=== PATIENT | female | born 1940 | race Caucasian/White ===

== ENCOUNTER 2021-03-24 14:23 | Emergency (ER) | payer MEDICARE ==
[~2021-03-24] VITALS: Ht 157 cm; Wt 83.0 kg
[2021-03-24] MEDS ORDERED: TETANUS,DIPTH,PERTUSS P/F (BOOSTRIX) 0.5 ML VIAL IM ONE (15:00)
--- NOTE | 2021-03-24 15:07 | ED Fall/Injury ---
General Chief Complaint: Head/Cervical Problems Stated Complaint: HEAD INJURY Nursing Triage Note: PT WAS SENT OVER FROM [facility] DUE TO HEAD INJURY. PATIENT STATES THAT AROUND 1200 SHE FELL GOING DOWN HER GRANDAUGHTERS STEPS. PATIENT FELL DOWN FOUR STEPS AND LANDED ON HER RT SIDE, HITTING HER HEAD ON CONCRETE. PATIENT DENIES LOC AND IS ALERT AND ORIENTED X'S 4. Source: patient Exam Limitations: no limitations History of Present Illness Date Seen by Provider: Mar 24, 2021 Time Seen by Provider: 14:40 Initial Comments Here after being seen at [facility] with report of fall and hitting her head on the concrete. Patient is 80 and does take aspirin but no other blood thinners. Does have abrasion to the right knee and right arm. She is walking and moving extremities okay. Denies loss of consciousness or significant neck pain. Denies breathing problems or abdominal pain. She reports falling down a few concrete steps. She caught herself with the railing but still fell. Occurred: this morning (3 hours ago) Severity: moderate Injuries/Pain Location: head, upper extremity, lower extremity Context: tripped Loss of Consciousness: no loss of consciousness Modifying Factors: Improves With Rest Associated Symptoms (Fall): No Chest Pain, No Confusion; Headache; No Lightheadedness, No Muscle Spasms, No Nausea/Vomiting, No Neck Pain, No Shortness of Air, No Trouble Walking, No Vision Changes Allergies and Home Medications Allergies Coded Allergies: Sulfa (Sulfonamide Antibiotics) (Verified Allergy, Unknown, 03/24/21) Patient Home Medication List Home Medication List Reviewed: Yes Review of Systems Review of Systems Constitutional: see HPI; No chills, No fever Eyes: No Symptoms Reported Ears, Nose, Mouth, Throat: no symptoms reported Respiratory: No cough, No short of breath Cardiovascular: no symptoms reported Gastrointestinal: No nausea, No vomiting Genitourinary: no symptoms reported Musculoskeletal: no symptoms reported Skin: change in color, lesions Psychiatric/Neurological: Headache (Right-sided top of her head); Denies Weakness Past Ixocelr-Flgewd-Gbabse Hx Past Med/Social Hx: Reviewed Nursing Past Med/Soc Hx Patient Social History Alcohol Use: Denies Use Smoking Status: Never a Smoker Recent Infectious Disease Expo: No Past Medical History Surgeries: Yes Hysterectomy Respiratory: No Cardiac: No Neurological: No Genitourinary: No Gastrointestinal: No Musculoskeletal: No Endocrine: No HEENT: No Cancer: No Psychosocial: No Integumentary: No Blood Disorders: No Family Medical History Reviewed Nursing Family Hx No Pertinent Family Hx Physical Exam Vital Signs Vital Signs - First Documented 03/24/21 14:34 Temp 36.3 Pulse 94 Resp 16 B/P (MAP) 147/103 (118) O2 Delivery Room Air Capillary Refill : Less Than 3 Seconds Height, Weight, BMI Height: '" Weight: lbs. oz. kg; 33.00 BMI Method: General Appearance: WD/WN, no apparent distress HEENT: PERRL/EOMI, pharynx normal, other (5 x 5 cm ecchymotic area right side top of head) Neck: full range of motion, supple Cardiovascular: regular rate, rhythm, no murmur Respiratory: lungs clear, normal breath sounds Gastrointestinal: non tender, soft Back: normal inspection, no CVA tenderness, no vertebral tenderness Extremities: normal range of motion, other (Abrasions right anterior knee with mild ecchymosis. Full range of motion without difficulty.) Neurologic/Psychiatric: alert, oriented x 3 Skin: warm/dry, ecchymosis (Right knee), other (Right knee) Milton Coma Score Best Eye Response: (4) Open Spontaneously Best Verbal Response: (5) Oriented Best Motor Response: (6) Obeys Commands Progress/Results/Core Measures Results/Orders My Orders Orders - CHACORTA OH MD Ct Head/Cervical Spine Wo (03/24/21 14:46) Dipht,Pertuss(Acell),Tet Adult (Boostrix (03/24/21 15:00) General/Regular (03/24/21 Lunch) Ondansetron Oral Dissolve Tab (Zofran (03/24/21 16:11) Medications Given in ED Current Medications Medications Dose Ordered Sig/Roberto Route Start Time Stop Time Status Last Admin Dose Admin Diphtheria/ Tetanus/Acell Pertussis 0.5 ml ONCE ONCE IM 03/24/21 15:00 03/24/21 15:01 DC 03/24/21 14:57 0.5 ML Vital Signs/I&O 03/24/21 14:34 Temp 36.3 Pulse 94 Resp 16 B/P (MAP) 147/103 (118) O2 Delivery Room Air Blood Pressure Mean: 118 Progress Progress Note : Progress Note Seen and evaluated. CT head and neck ordered given age and type of fall. Tetanus updated. Monitor patient. 1549: CT head and neck do not show any acute findings. Patient requested snack because she felt a little lightheaded since she has not eaten this morning. That was offered and given. Discharged home with return precautions. Patient verbalized understanding instructions and agreement with plan. 1705: Patient did have episode of dizziness at time of discharge with some nausea. She was given Zofran 4 mg sublingual. She subsequently ate. She has been sitting up and is doing much better now would like to go home. Discharged home as previously discussed. Diagnostic Imaging Diagonstic Imaging: CT Plain Films/CT/US/NM/MRI: c-spine, head Comments [facility], [place] NAME: MARCOS GARCIA [facility] REC#: [id number] PT STATUS: REG ER : 1940 PHYSICIAN: CHACORTA OH MD ADMIT DATE: 03/24/21/ER Draft Date of Exam:03/24/21 CT HEAD/CERVICAL SPINE WO PROCEDURE: CT head and CT cervical spine without contrast. TECHNIQUE: Multiple contiguous axial images were obtained through the brain and cervical spine without the use of intravenous contrast. Sagittal and coronal reformations through the cervical spine were then performed. Auto Exposure Controls were utilized during the CT exam to meet ALARA standards for radiation dose reduction. INDICATION: Fall. Trauma. COMPARISON: None. FINDINGS: CT HEAD: The ventricles and cortical sulci are diffusely prominent, compatible with age-related volume loss. There are confluent areas of abnormal, low attenuation in the periventricular white matter. This is consistent with small vessel ischemic changes; age-indeterminate. There is no prior study available for comparison. There is no midline shift or mass-effect. No acute intra-axial hemorrhage is seen. There are no abnormal areas of increased or decreased density to suggest acute hemorrhage or edema. No extra-axial masses or collections are present. Moderate-sized scalp hematoma is noted posterolaterally on the right. The underlying bony calvarium is intact. The visualized paranasal sinuses are unremarkable. The mastoid air cells are clear. CT CERVICAL SPINE: Static alignment of the cervical spine is maintained. There is no significant christiano or retrolisthesis. There is no evidence of jumped facets. Vertebral body heights are maintained. There is no acute fracture. No bony fragments are seen within the spinal canal. Multilevel degenerative changes are noted and consist of intervertebral disc height loss with anterior and posterior endplate osteophyte formations as well as multilevel facet arthropathy. These changes appear greatest at the C5-C6 level. Pre and paravertebral soft tissue structures are unremarkable. The included portions of the lung apices show no additional acute abnormalities. IMPRESSION: 1. No acute intracranial abnormality. No CT evidence of mass, acute infarct, or intracranial hemorrhage. 2. Small vessel ischemic changes in the periventricular and subcortical white matter; likely chronic. 3. No acute fracture or dislocation in the cervical spine. 4. Multilevel degenerative changes, greatest at C5-C6. Dictated on workstation # [id number] Dict: 03/24/21 1532 Trans: 03/24/21 1538 [id number] Interpreted by: JOSE A BELL MD Electronically signed by: Departure Impression Primary Impression: Head injury Qualified Codes: S09.90XA - Unspecified injury of head, initial encounter Additional Impressions: Scalp contusion Qualified Codes: S00.03XA - Contusion of scalp, initial encounter Multiple abrasions Disposition: HOME, SELF-CARE Condition: Stable Departure-Patient Inst. Decision time for Depature: 17:05 (3154) Referrals: BELL HARGROVE MD Patient Instructions: Minor Head Injury (DC), Contusion (DC), Abrasions ED Add. Discharge Instructions: All discharge instructions reviewed with patient and/or family. Voiced understanding. You may use ice pack to contusions for 20 minutes/h as needed to reduce swelling and pain. You may take Tylenol/acetaminophen 1000 mg every 6-8 hours as needed for pain. You may use antibiotic ointment or cream lightly over wounds once or twice daily to reduce chance of infection. It is okay to shower and wash wounds. Return for worse pain, fever, vomiting, weakness, vision or balance problems, dizziness or other concerns as needed. CHACORTA OH MD Mar 24, 2021 15:07
--- NOTE | 2021-03-24 15:39 | Diagnostic Imaging Report ---
PROCEDURE: CT head and CT cervical spine without contrast. TECHNIQUE: Multiple contiguous axial images were obtained through the brain and cervical spine without the use of intravenous contrast. Sagittal and coronal reformations through the cervical spine were then performed. Auto Exposure Controls were utilized during the CT exam to meet ALARA standards for radiation dose reduction. INDICATION: Fall. Trauma. COMPARISON: None. FINDINGS: CT HEAD: The ventricles and cortical sulci are diffusely prominent, compatible with age-related volume loss. There are confluent areas of abnormal, low attenuation in the periventricular white matter. This is consistent with small vessel ischemic changes; age-indeterminate. There is no prior study available for comparison. There is no midline shift or mass-effect. No acute intra-axial hemorrhage is seen. There are no abnormal areas of increased or decreased density to suggest acute hemorrhage or edema. No extra-axial masses or collections are present. Moderate-sized scalp hematoma is noted posterolaterally on the right. The underlying bony calvarium is intact. The visualized paranasal sinuses are unremarkable. The mastoid air cells are clear. CT CERVICAL SPINE: Static alignment of the cervical spine is maintained. There is no significant christiano or retrolisthesis. There is no evidence of jumped facets. Vertebral body heights are maintained. There is no acute fracture. No bony fragments are seen within the spinal canal. Multilevel degenerative changes are noted and consist of intervertebral disc height loss with anterior and posterior endplate osteophyte formations as well as multilevel facet arthropathy. These changes appear greatest at the C5-C6 level. Pre and paravertebral soft tissue structures are unremarkable. The included portions of the lung apices show no additional acute abnormalities. IMPRESSION: 1. No acute intracranial abnormality. No CT evidence of mass, acute infarct, or intracranial hemorrhage. 2. Small vessel ischemic changes in the periventricular and subcortical white matter; likely chronic. 3. No acute fracture or dislocation in the cervical spine. 4. Multilevel degenerative changes, greatest at C5-C6. Dictated by: Dictated on workstation # [id number]
[2021-03-24] MEDS ORDERED: ONDANSETRON 4 MG (ZOFRAN) ORAL DISSOLVE TAB SL STA (16:11)
[2021-03-24 17:17] VITALS: BP 132/78
== END 2021-03-24 17:17 | disposition home or self-care (01) ==
LOC: ER 14:30
DX: S00.03XA Contusion of scalp, initial encounter (principal); S80.01XA Contusion of right knee, initial encounter; S09.90XA Unspecified injury of head, initial encounter; Z23 Encounter for immunization; W22.8XXA Striking against or struck by other objects, initial encounter
CPT/HCPCS: 70450; 72125; 90715

== ENCOUNTER 2022-01-02 13:50 | Emergency (ER) | payer MEDICARE ==
[~2022-01-02] VITALS: Ht 157 cm; Wt 81.0 kg
[2022-01-02 14:03] VITALS: BP 173/100
[2022-01-02] MEDS ORDERED: HYDROcodone/APAP 5 MG/325 MG (LORTAB) TAB PO ONE (14:45)
--- NOTE | 2022-01-02 14:49 | ED Back Pain ---
General Chief Complaint: Back Problems Stated Complaint: BACK PAIN - CONSTIPATION Nursing Triage Note: Pt here with back pain to the lower right side that radiates into her lower abdomen. Pt states she was seen at a walk in clinic a wk ago and given Prednisone and a muscle relaxer. Since then she has become constipated. Pt noted to be hypertensive; she states she hasn't taken her b/p medicine in a couple of days. Source of Information: Patient Exam Limitations: No Limitations History of Present Illness Date Seen by Provider: Jan 02, 2022 Time Seen by Provider: 14:34 Initial Comments Here with complaint of low back pain on the right side and constipation. She is on prednisone and a muscle relaxer from the clinic. Onset of pain and constipation after moving furniture about a week ago. Pain is to the right but tock and radiates to the right upper leg and noted in the right low back. Denies falls, injuries otherwise or other trauma. Denies numbness between her legs. Denies difficulty with walking or urinating. She does report constipation. States that [id number] topical medications as well as the prescribed medicines have not worked for her pain so far. She is heading back to [place] in a few days. She is hoping to get a little better by then. Timing/Duration: 1 Week, Constant Severity: Moderate Pain/Injury Location: Back Radiation: Buttocks Method of Injury: Other Modifying Factors: Worse With Movement; Improves With Rest Associated Symptoms: No muscle spasms, No fever, No weakness, No numbness in legs/feet, No tingling in legs/feet, No sensory/motor loss; lower back pain; No loss of bladder control, No loss of bowel control Allergies and Home Medications Allergies Coded Allergies: Sulfa (Sulfonamide Antibiotics) (Verified Allergy, Unknown, 03/24/21) Patient Home Medication List Home Medication List Reviewed: Yes Review of Systems Constitutional: see HPI; No chills, No fever Respiratory: no symptoms reported Cardiovascular: no symptoms reported Gastrointestinal: see HPI, constipation; No nausea, No vomiting Genitourinary: No frequency, No hesitancy, No pain Musculoskeletal: back pain, muscle pain Skin: no symptoms reported Psychiatric/Neurological: No Symptoms Reported Past Dwzpzvu-Wwxgon-Hschnr Hx Patient Social History Tobacco Use?: No Substance use?: No Alcohol Use?: No Past Medical History Surgeries: Yes Hysterectomy Respiratory: No Cardiac: No Neurological: No Genitourinary: No Gastrointestinal: No Musculoskeletal: No Endocrine: No HEENT: No Cancer: No Psychosocial: No Integumentary: No Blood Disorders: No Family Medical History Reviewed Nursing Family Hx No Pertinent Family Hx Physical Exam Vital Signs Vital Signs - First Documented 01/02/22 14:03 Temp 36.2 Pulse 100 Resp 18 B/P (MAP) 173/100 (124) Pulse Ox 96 Capillary Refill : Height, Weight, BMI Height: '" Weight: lbs. oz. kg; 32.00 BMI Method: General Appearance: No Apparent Distress, WD/WN Neck: Non Tender, Supple Cardiovascular: Regular Rate, Rhythm, No Murmur Respiratory: Lungs Clear, Normal Breath Sounds Gastrointestinal: Normal Bowel Sounds, Non Tender, Soft; No Distended Back: No CVA Tenderness, No Vertebral Tenderness, Other (Mild tenderness in the area of the right upper buttock at the SI joint) Extremity: Normal Range of Motion, Non Tender, No Calf Tenderness Neurologic/Psychiatric: Alert, Oriented x3 Skin: Normal Color, Warm/Dry Progress/Results/Core Measures Results/Orders My Orders Orders - CHACORTA OH MD Acute Abd Series (01/02/22 14:42) Hydrocodone/Apap 5/325 Tablet (Lortab 5 (01/02/22 14:45) Medications Given in ED Current Medications Medications Dose Ordered Sig/Roberto Route Start Time Stop Time Status Last Admin Dose Admin Acetaminophen/ Hydrocodone Bitart 1 ea ONCE ONCE PO 01/02/22 14:45 01/02/22 14:46 DC 01/02/22 14:50 1 EA Vital Signs/I&O 01/02/22 14:03 Temp 36.2 Pulse 100 Resp 18 B/P (MAP) 173/100 (124) Pulse Ox 96 Blood Pressure Mean: 124 Progress Progress Note : Progress Note Seen and evaluated. We will get acute abdominal series to evaluate abdomen and for constipation. Hydrocodone 5/325 1 tab p.o. given. Monitor patient. 1551: Overall doing okay. X-ray reviewed and reviewed with patient including the torturous aorta. She does take blood pressure medicines and I counseled her to make sure that she continues those as prescribed. She does have constipation on x-ray. We discussed outpatient therapy for that. Discharged home with return precautions. Patient and family verbalized understanding instructions and agreement with plan. Diagnostic Imaging Diagonstic Imaging: Xray Plain Films/CT/US/NM/MRI: chest, abdomen Comments [facility] [place], [place] NAME: MARCOS GARCIA [facility] REC#: [id number] PT STATUS: REG ER : 1940 PHYSICIAN: CHACORTA OH MD ADMIT DATE: 01/02/22/ER Draft Date of Exam:01/02/22 ACUTE ABD SERIES INDICATION: Back pain on the right and extending into the lower abdomen. FINDINGS: The lungs are clear. There is tortuous and/or ectatic thoracic aorta. No acute appearing abnormality. No effusion or pneumothorax. The colonic fecal load is perhaps mildly elevated but not clearly pathologic. No impaction or obstruction. No suspect calcifications. IMPRESSION: Borderline constipation. Tortuous and/or ectatic thoracic aorta. No acute appearing pulmonary pathology, obstruction or free air. Dictated on workstation # [id number] Dict: 01/02/22 1512 Trans: 01/02/22 1518 [id number] Interpreted by: MAILE WEBB Electronically signed by: Reviewed: Reviewed by Me Departure Impression Primary Impression: Lumbar radiculopathy Additional Impression: Constipation Qualified Codes: K59.00 - Constipation, unspecified Disposition: 01 HOME, SELF-CARE Condition: Stable Departure-Patient Inst. Decision time for Depature: 15:52 Referrals: [facility] [place] Primary Care Physician Patient Instructions: Constipation, Adult (DC), Radiculopathy (DC), Back Muscle Strain (DC) Add. Discharge Instructions: All discharge instructions reviewed with patient and/or family. Voiced understanding. You may take MiraLAX or the generic, 1 capful twice daily for 3 days and then 1 capful daily thereafter as needed to keep stools soft. You may increase or decrease the dose to keep stools in normal range. Drink plenty of fluids. You may consider suppository laxative or enema. Return for worse pain, weakness, numbness between your legs, difficulty with walking or going to the bathroom, chest pain, breathing problems or other concerns as needed. Continue other medications as prescribed. Follow-up with your doctor next week for recheck and further evaluation as needed. CHACORTA OH MD Jan 02, 2022 14:48
--- NOTE | 2022-01-02 15:18 | Diagnostic Imaging Report ---
INDICATION: Back pain on the right and extending into the lower abdomen. FINDINGS: The lungs are clear. There is tortuous and/or ectatic thoracic aorta. No acute appearing abnormality. No effusion or pneumothorax. The colonic fecal load is perhaps mildly elevated but not clearly pathologic. No impaction or obstruction. No suspect calcifications. IMPRESSION: Borderline constipation. Tortuous and/or ectatic thoracic aorta. No acute appearing pulmonary pathology, obstruction or free air. Dictated by: Dictated on workstation # [id number]
== END 2022-01-02 16:07 | disposition home or self-care (01) ==
LOC: EDUNIT# 13:50 → ER 13:50
DX: M54.16 Radiculopathy, lumbar region (principal); K59.00 Constipation, unspecified; X50.0XXA Overexertion from strenuous movement or load, initial encounter
CPT/HCPCS: 74022